=== PATIENT | male | born 1940 | race Caucasian/White ===

== ENCOUNTER 2017-07-04 14:17 | Outpatient (CLI) ==
--- NOTE | 2017-07-04 15:10 | DI ---
EXAM: Chest, two views, 07/04/2017 HISTORY: Cough COMPARISON: 07/05/2015 FINDINGS / IMPRESSION: Cardiomediastinal contours appear stable. There is no focal pulmonary consolidation. No pleural effusion or pneumothorax. No acute cardiopulmonary process.
== END 2017-07-04 14:18 | disposition home or self-care (01) ==
LOC: RAD 14:17
PROVIDERS: ATTEND Family Medicine
DX: J44.9 Chronic obstructive pulmonary disease, unspecified (principal); Z77.090 Contact with and (suspected) exposure to asbestos

== ENCOUNTER 2017-11-13 15:39 | Outpatient (CLI) ==
--- NOTE | 2017-11-13 16:57 | DI ---
EXAM: Four views of the cervical spine. History: Neck pain. Findings: No acute fracture or subluxation of the cervical spine. No prevertebral soft tissue swell ing. Predental space is not widened. Atherosclerotic vascular calcifications. Moderate disc space narrowing at C6-7 with endplate sclerosis and osteophyte formation. Mild disc space narrowing seen e lsewhere. Straightening of the normal curvature of the cervical spine. Impression: 1. No acute osseous abnormality of the cervical spine. 2. Moderate degenerative disc disease at C6-7
== END 2017-11-13 15:40 | disposition home or self-care (01) ==
LOC: RAD 15:39
PROVIDERS: ATTEND Family Medicine
DX: M54.2 Cervicalgia (principal); M79.609 Pain in unspecified limb

== ENCOUNTER 2017-12-19 08:15 | Outpatient (RCR) ==
--- NOTE | 2017-12-10 11:50 | RS.OPPTEV2 ---
Date of Note: 12/10/17 Visit #: 1 Date of Evaluation: 12/10/17 Payer Source: MEDICARE Surgery Performed?: No Treatment Diagnosis: acute cervical pain History of Condition/Mechanism of Injury:: pt reports his pain in cervical spine and upper thoracic spine began around 11/03/17. He reports no injury noted. Prior Level of Function.....Patient was independent with: ADL's, Self Care, Ambulation/Mobility, Community Integration/Access Functional Limitations: Reaching, Pushing, Pulling, Lifting Current Subjective/complaints:: pt states he has constant pain in cervical spine no radicular symptoms noted. pt reports no movement seems to change pain. Treatment Side (optional): N/A *Precautions: n/a Medical History Medical History: Hypertension, COPD, Arthritis Medical History Comments:: "kidney problems", gout, rheumatoid arthritis Surgical History: Cholecystectomy, Tonsillectomy Surgical History Comments:: cardiac stent Smoking Status: Former smoker Diagnostic Testing/Imaging:: cervical spine x ray 11/13/17 "moderate degenerative disc disease C6-C7" Hx Home Medications: prednisone, losartan, allopurinol, carvedilol, bumetanide, atorvastatin, enalapril, calcium, folic acid, fish oil Patient's Goals: decrease pain Pain Assessment - Pain Description Pain Location: cervical spine especially lower cervical R worse than L Current Pain Intensity: 6 Worst Pain Intensity: 9 Functional Outcome Measure Neck Disability Index: 19 (62%) - G Codes & Severity Modifier G Codes & Modifier: changing and maintaining body position current CL. changing and maintaining body position goal CJ Source of G Code score: neck disability index Observation - Observation Posture: Forward Head, Rounded Shoulders, Increased Thoracic Kyphosis, Decreased Lumbar Lordosis Handedness: Right Gait - Gait Pattern General Gait Pattern Observation: No Deviations/Normal General Range of Motion: BUE/LE WFL's Muscle Strength: BUE 4+/5. BLE 5/5 - ROM Cervical Spine Range of Motion Limitations: Soft Tissue Tightness, Muscle Weakness, Pain Comments: pt with Cervical flex, ext, rotation WFL's. cervical side bending somewhat limited R worse than L due to muscle tightness. - Strength Cervical Extension: 4 Good Cervical Flexion: 4 Good Cervical Lateral Flexion: 3+ Fair+ Cervical Rotation: 4- Good- - Special Tests Foraminal Distraction: Negative Foraminal Compression: Negative Left, Negative Right Thoracic Outlet Test: Negative Left, Negative Right (ROM does not increase pain , pain remains constant throughout exam, no c/o radicular pain.) Palpation Palpation Findings: Tenderness, Trigger Point Comments:: pt with trigger point noted in R upper trap. Tenderness in B cervical paraspinal muscles, upper traps and scalenes. Sensation - Sensation Right Upper Extremity: Impaired Left Upper Extremity: Impaired Right Lower Extremity: Impaired Left Lower Extremity: Impaired Comments: pt reports numbness and tingling B hands and feet. Balance - Sitting Balance Static Sitting Balance: Normal Dynamic Sitting Balance: Normal - Standing Balance Static Standing Balance: Normal Dynamic Standing Balance: Normal - Treatment Modality: Electrical Stim Unattended Parameters/Method Applied: IFC x 20 mins at 16ma Treatment Area: cervical spine Patient Position: Supine - Heat/Cryotherapy Treatment: Hot Pack Comments:: cervical spine Interventions - Exercise/Activities/Manual Therapy Exercises/Activities: pt performed corner stretches, scapular retraction, cervical retraction, upper trap and scalene stretch Manual Therapy: n/a HOME EXERCISE PROGRAM: pt given written HEP including: corner stretch, scapular retraction, cervical retraction, upper trap and scalene stretch - Objective Findings Observations,measurements,etc.: Discussion with patient regarding using towel roll to improve curve in cervical spine. - Charges Timed Code Treatment Minutes: 40 Total Treatment Time: 62 Procedures billed for this date of service:: eval med, estim unattended, hot pack EVALUATION COMPLEXITY LEVEL EVALUATION COMPLEXITY LEVEL: HISTORY: Medium (RA, gout, HTN, COPD), EXAM OF BODY SYSTEMS: Medium (pain, muscle tightness, posture), CLINICAL PRESENTATION: Medium (evolving), CLINICAL DECISION MAKING: Medium Assessment Assessment: pt presents with upper trap and scalene tightness as well as tightness noted in paraspinal muscles. pt with pain in cervical spine R worse than L. pt with forward flexed posture and tight pectoral muscles as well. Patient Education: Home Exercise Program, Activity Modification, Education of Plan of Care Rehab Potential: Good Short Term Goals Goal #1: pt rate pain in cervical spine < 5/10 with activity Goal to be met by: 12/31/17 Goal #2: pt with decreased muscle tightness in B upper trap/scalenes Goal to be met by: 12/31/17 Goal #3: pt report less dizziness/headaches Goal to be met by: 12/31/17 Manager Managed Care Goals Goal #1: pt rate pain cervical spine <4/10 Goal to be met by: 01/21/18 Goal #2: pt with decreased muscle tightness WFL's upper trap/scalene, and paraspinal Goal to be met by: 01/21/18 Goal #3: pt independent with HEP Goal to be met by: 01/21/18 Goal #4: pt with improved posture and no reports of dizziness Goal to be met by: 01/21/18 Plan - Treatment to be Provided Procedures: Therapeutic Exercises, Therapeutic Activity, Neuromuscular Rehab, Manual Therapy, Massage, Patient Education Modalities: Electrical Stimulation, Ultrasound/Phonophoresis, Class IV Laser, Cryotherapy, Hot Packs, Mechanical Traction - Treatment Plan Frequency: 2-3x a week Duration: 6 weeks ORDER # VISITS AND/OR THROUGH DATE: 01/21/18 - Treatment Code (1) Cervical pain Code(s): M54.2 - CERVICALGIA (2) Muscle tightness Code(s): M62.89 - OTHER SPECIFIED DISORDERS OF MUSCLE
--- NOTE | 2017-12-12 11:42 | RS.OPPTDN ---
Subjective Date of Note: 12/12/17 Visit #: 2 Date of Evaluation: 12/10/17 Payer Source: MEDICARE Treatment Diagnosis: acute cervical pain Current Subjective/complaints:: Patient reports increased muscle soreness following first treatment. Reports he is working on HEP as instructed. *Precautions: n/a Pain Assessment - Pain Description Pain Location: Cervical spine and upper traps Pain Description: Tightness, Aching Current Pain Intensity: 4-6/10 - Treatment Modality: Electrical Stim Unattended Parameters/Method Applied: [id number] HVGC to the bilateral cervical paraspinals with HP prior to MT and EX. Patient Position: Sitting - Heat/Cryotherapy Treatment: Hot Pack ([id number] with Estim ) Interventions - Exercise/Activities/Manual Therapy Exercises/Activities: Assisted stretching of cervical lateral flexion, lev scap , upper traps, and anterior chest stretch. Scapular retraction and shoulder shrugs. Isometric cervical retraction with manual resistance. Reviewed current HEP and patient given copy of new exercise. Total minutes of Exercise: 9mins Manual Therapy: Deep tissue massage and trigger point release to the bilateral cervical paraspinals and traps. Myofascial release along the traps. Total minutes of Manual Therapy: 20mins HOME EXERCISE PROGRAM: pt given written HEP including: corner stretch, scapular retraction, cervical retraction, upper trap and scalene stretch, Isometric cervical retraction - Charges Timed Code Treatment Minutes: 29mins Total Treatment Time: 52mins Procedures billed for this date of service:: HP, Estim unattended, MT, EX Assessment: Patient motivated to work on HEP and progress. Patient Education: Education of diagnosis, Body/Joint mechanics, Home Exercise Program Comments: Patient education of spinal mechanics and posture. Patient demonstrates compliance with HEP?: Yes Short Term Goals Goal #1: pt rate pain in cervical spine < 5/10 with activity Goal to be met by: 12/31/17 Goal #2: pt with decreased muscle tightness in B upper trap/scalenes Goal to be met by: 12/31/17 Goal #3: pt report less dizziness/headaches Goal to be met by: 12/31/17 Skilled Nursing Goals Goal #1: pt rate pain cervical spine <4/10 Goal to be met by: 01/21/18 Goal #2: pt with decreased muscle tightness WFL's upper trap/scalene, and paraspinal Goal to be met by: 01/21/18 Goal #3: pt independent with HEP Goal to be met by: 01/21/18 Progress towards goal: Progressing Goal #4: pt with improved posture and no reports of dizziness Goal to be met by: 01/21/18 Plan PLAN OF CARE EXPIRES ON:: 01/21/18 ORDER # VISITS AND/OR THROUGH DATE: 01/21/18 PLAN: Continue modalities, manual therapy, and exercise to reduce pain and increase functional activity level.
--- NOTE | 2017-12-17 09:57 | RS.OPPTDN ---
Subjective Date of Note: 12/17/17 Visit #: 3 Date of Evaluation: 12/10/17 Payer Source: MEDICARE Treatment Diagnosis: acute cervical pain Current Subjective/complaints:: Patient reports last treatment seems to have reduced his pain. States he has not noticed a flair-up the last few days with weather changes. *Precautions: n/a Pain Assessment - Pain Description Pain Location: cervical to upper thoracic spine Current Pain Intensity: mild to mod - Treatment Modality: Electrical Stim Unattended Parameters/Method Applied: [id number] HVGC to 155p.v. with 2 small pads along each cervical to upper thoracic paraspinals with HP. Patient Position: Supine - Heat/Cryotherapy Treatment: Hot Pack (with Estim prior to MT. Patient in supine. ) Interventions - Exercise/Activities/Manual Therapy Exercises/Activities: Assisted stretching of cervical lateral flexion. Isometric cervical retraction with manual resistance. Discussed current HEP, no new additions. Total minutes of Exercise: 5mins Manual Therapy: Deep tissue massage and trigger point release to the bilateral cervical paraspinals and traps. Myofascial release along the traps. Total minutes of Manual Therapy: 23mins HOME EXERCISE PROGRAM: pt given written HEP including: corner stretch, scapular retraction, cervical retraction, upper trap and scalene stretch, Isometric cervical retraction - Charges Timed Code Treatment Minutes: 28mins Total Treatment Time: 48mins Procedures billed for this date of service:: HP, Estim unattended, MTx2 Assessment: Patient responding to treatment with report of reduction in pain. Patient Education: Body/Joint mechanics, Home Exercise Program Patient demonstrates compliance with HEP?: Yes Short Term Goals Goal #1: pt rate pain in cervical spine < 5/10 with activity Goal to be met by: 12/31/17 Goal #2: pt with decreased muscle tightness in B upper trap/scalenes Goal to be met by: 12/31/17 Goal #3: pt report less dizziness/headaches Goal to be met by: 12/31/17 Progress towards Goal:: Progressing Hospice Aide Goals Goal #1: pt rate pain cervical spine <4/10 Goal to be met by: 01/21/18 Goal #2: pt with decreased muscle tightness WFL's upper trap/scalene, and paraspinal Goal to be met by: 01/21/18 Goal #3: pt independent with HEP Goal to be met by: 01/21/18 Progress towards goal: Progressing Goal #4: pt with improved posture and no reports of dizziness Goal to be met by: 01/21/18 Plan PLAN OF CARE EXPIRES ON:: 01/21/18 ORDER # VISITS AND/OR THROUGH DATE: 01/21/18 PLAN: Continue modalities, manual therapy, and postural correction exercise to reduce pain and increase functional activity level.
--- NOTE | 2017-12-20 09:06 | RS.OPPTDN ---
Subjective Date of Note: 12/19/17 Visit #: 4 Date of Evaluation: 12/10/17 Payer Source: MEDICARE Treatment Diagnosis: acute cervical pain Current Subjective/complaints:: Patient reports some muscle soreness improving, but feels the "fogginess" he feels seems related to sinus problems. *Precautions: n/a Pain Assessment - Pain Description Pain Location: base of cervical spine through mid thoracic spine Pain Description: Tightness, Aching Current Pain Intensity: mod - Treatment Modality: Electrical Stim Unattended Parameters/Method Applied: [id number] HVGC to 255p.v. with 4 small pads along the lower cervical paraspinals to the mid thoracic paraspinals with HP. Patient Position: Supine - Heat/Cryotherapy Treatment: Hot Pack ([id number] with Estim ) Interventions - Exercise/Activities/Manual Therapy Exercises/Activities: Assisted stretching of cervical lateral flexion. Isometric cervical retraction with manual resistance. Isometric shoulder extension. Mid scapular stretch with UE across midline. Patient given copy of new exercise. Total minutes of Exercise: 12mins Manual Therapy: Deep tissue massage and trigger point release to the bilateral cervical paraspinals and traps. Myofascial release along the traps. Total minutes of Manual Therapy: 19mins HOME EXERCISE PROGRAM: pt given written HEP including: corner stretch, scapular retraction, cervical retraction, upper trap and scalene stretch, Isometric cervical retraction - Charges Timed Code Treatment Minutes: 41mins Total Treatment Time: 41mins Procedures billed for this date of service:: [place] EX Assessment: Patient reporting some improvement in neck pain and cervical mobility. He is working on basic HEP. Patient Education: Education of diagnosis, Body/Joint mechanics, Home Exercise Program Patient demonstrates compliance with HEP?: Yes Short Term Goals Goal #1: pt rate pain in cervical spine < 5/10 with activity Goal to be met by: 12/31/17 Progress towards Goal:: Progressing Goal #2: pt with decreased muscle tightness in B upper trap/scalenes Goal to be met by: 12/31/17 Progress towards Goal:: Progressing Goal #3: pt report less dizziness/headaches Goal to be met by: 12/31/17 Progress towards Goal:: Not Met Comments:: Bothering him today, feels this is related to sinus problems. Telemarketing Supervisor Goals Goal #1: pt rate pain cervical spine <4/10 Goal to be met by: 01/21/18 Goal #2: pt with decreased muscle tightness WFL's upper trap/scalene, and paraspinal Goal to be met by: 01/21/18 Goal #3: pt independent with HEP Goal to be met by: 01/21/18 Progress towards goal: Progressing Goal #4: pt with improved posture and no reports of dizziness Goal to be met by: 01/21/18 Plan PLAN OF CARE EXPIRES ON:: 01/21/18 ORDER # VISITS AND/OR THROUGH DATE: 01/21/18 PLAN: Progress with postural strengthening and correction exercises.
== END 2017-12-19 23:59 ==
PROVIDERS: ATTEND Family Medicine
DX: M54.2 Cervicalgia (principal); M54.9 Dorsalgia, unspecified; G89.29 Other chronic pain; M19.90 Unspecified osteoarthritis, unspecified site; M62.89 Other specified disorders of muscle

== ENCOUNTER 2017-12-31 08:00 | Outpatient (RCR) ==
--- NOTE | 2017-12-24 10:54 | RS.OPPTDN ---
Subjective Date of Note: 12/24/17 Visit #: 5 Date of Evaluation: 12/10/17 Payer Source: MEDICARE Treatment Diagnosis: acute cervical pain Current Subjective/complaints:: Patient reports tension in his neck is much better, but radicular symptom of numbness in the right UE seems aggravated. Patient reports feeling better following cervical traction today. *Precautions: n/a Pain Assessment - Pain Description Pain Location: cervical spine and right UE Current Pain Intensity: mild at neck Other Comments regarding Pain:: Radicular symptoms of numbness in the right UE, seems aggravated today. - Heat/Cryotherapy Treatment: Hot Pack ([id number] to the cervical spine and upper traps prior to TX. Patient in sitting. ) - Traction Treatment Method: Mechanical, Intermittent, Cervical Patient Position: Supine Amount of Force Applied: 18-23# Hold Time: 35sec Rest Time: 5sec Duration of treatment: 15mins Interventions - Exercise/Activities/Manual Therapy Exercises/Activities: Assisted stretching of cervical lateral flexion. Isometric cervical retraction with manual resistance. Discussed current HEP, no new additions. Total minutes of Exercise: 3mins Manual Therapy: Trigger point release to the bilateral cervical paraspinals and traps. Myofascial stretching of bilateral traps. Total minutes of Manual Therapy: 4mins HOME EXERCISE PROGRAM: pt given written HEP including: corner stretch, scapular retraction, cervical retraction, upper trap and scalene stretch, Isometric cervical retraction - Charges Timed Code Treatment Minutes: 7mins Total Treatment Time: 42mins Procedures billed for this date of service:: HP, [place] mechanical Assessment: Patient reports good response to cervical traction and states he would like to try again. Patient Education: Body/Joint mechanics, Home Exercise Program Patient demonstrates compliance with HEP?: Yes Short Term Goals Goal #1: pt rate pain in cervical spine < 5/10 with activity Goal to be met by: 12/31/17 Goal #2: pt with decreased muscle tightness in B upper trap/scalenes Goal to be met by: 12/31/17 Goal #3: pt report less dizziness/headaches Goal to be met by: 12/31/17 Progress towards Goal:: Progressing Balance Truer Goals Goal #1: pt rate pain cervical spine <4/10 Goal to be met by: 01/21/18 Goal #2: pt with decreased muscle tightness WFL's upper trap/scalene, and paraspinal Goal to be met by: 01/21/18 Goal #3: pt independent with HEP Goal to be met by: 01/21/18 Progress towards goal: Progressing Goal #4: pt with improved posture and no reports of dizziness Goal to be met by: 01/21/18 Plan PLAN OF CARE EXPIRES ON:: 01/21/18 ORDER # VISITS AND/OR THROUGH DATE: 01/21/18 PLAN: Progress cervical traction in attempt to reduce neck pain and right UE radicular symptoms.
--- NOTE | 2017-12-27 16:13 | RS.OPPTDN ---
Subjective Date of Note: 12/27/17 Visit #: 6 Date of Evaluation: 12/10/17 Payer Source: MEDICARE Treatment Diagnosis: acute cervical pain Current Subjective/complaints:: Patient reports starting traction last session has reduced his pain by 50%. Also a reduction in dizziness and headaches. *Precautions: n/a Pain Assessment - Pain Description Pain Location: Cervical spine and right UE Current Pain Intensity: mild Other Comments regarding Pain:: Reports cervical traction has reduced neck pain and radicular symptoms in the right UE. - Heat/Cryotherapy Treatment: Hot Pack ([id number] to the cervical spine and bilateral UT. Patient in sitting. ) - Traction Treatment Method: Mechanical, Intermittent, Cervical Patient Position: Supine Amount of Force Applied: 22-25# Hold Time: 35sec Rest Time: 5sec Duration of treatment: 20mins Interventions - Exercise/Activities/Manual Therapy Exercises/Activities: Assisted stretching of cervical lateral flexion. Isometric cervical retraction with manual resistance. Green theraband for scapular retraction and bilateral shoulder ext for postural strengthening. Patient given copies of new exercises. Total minutes of Exercise: x8mins Manual Therapy: Trigger point release to the bilateral trap trigger points. Total minutes of Manual Therapy: x3mins HOME EXERCISE PROGRAM: pt given written HEP including: corner stretch, scapular retraction, cervical retraction, upper trap and scalene stretch, Isometric cervical retraction - Charges Timed Code Treatment Minutes: 11mins Total Treatment Time: 51mins Procedures billed for this date of service:: HP, TX mechanical, EX Assessment: Patient responded well to initiation of cervical traction with reports of reduction of pain and radicular symptoms. Patient Education: Education of diagnosis, Body/Joint mechanics, Home Exercise Program, Activity Modification Patient demonstrates compliance with HEP?: Yes Short Term Goals Goal #1: pt rate pain in cervical spine < 5/10 with activity Goal to be met by: 12/31/17 Progress towards Goal:: Partially Met Goal #2: pt with decreased muscle tightness in B upper trap/scalenes Goal to be met by: 12/31/17 Progress towards Goal:: Progressing Goal #3: pt report less dizziness/headaches Goal to be met by: 12/31/17 Progress towards Goal:: Partially Met Usp Goals Goal #1: pt rate pain cervical spine <4/10 Goal to be met by: 01/21/18 Progress towards goal: Progressing Goal #2: pt with decreased muscle tightness WFL's upper trap/scalene, and paraspinal Goal to be met by: 01/21/18 Goal #3: pt independent with HEP Goal to be met by: 01/21/18 Progress towards goal: Progressing Goal #4: pt with improved posture and no reports of dizziness Goal to be met by: 01/21/18 Progress towards goal: Partially Met Plan PLAN OF CARE EXPIRES ON:: 01/21/18 ORDER # VISITS AND/OR THROUGH DATE: 01/21/18 PLAN: Continue and progress cervical traction to reduce neck pain and radicular symptoms.
--- NOTE | 2017-12-31 11:45 | RS.OPPTDN ---
Subjective Date of Note: 12/31/17 Visit #: 7 Date of Evaluation: 12/10/17 Payer Source: MEDICARE Treatment Diagnosis: acute cervical pain Current Subjective/complaints:: Patient reports he is much better since having cervical traction. States his right UE radicular symptoms have localized in the right upper traps. Reports mild muscle tightness at based of cervical spine. States dizziness has resolved and headaches or only occasional and mild. States he feels he can continue HEP and is ready to stop treatment at this time. *Precautions: n/a Pain Assessment - Pain Description Pain Location: base of c-spine Pain Description: Dull Pain Description: muscle soreness Current Pain Intensity: mild - Heat/Cryotherapy Treatment: Hot Pack ([id number] to the base of the cervical spine and upper traps prior to TX. Patient in sitting. ) - Traction Treatment Method: Mechanical, Intermittent, Cervical Patient Position: Supine Amount of Force Applied: 25# Hold Time: 35sec Rest Time: 5sec Duration of treatment: 20mins Interventions - Exercise/Activities/Manual Therapy Exercises/Activities: Discussed HEP including stretching and postural correction /strengthening. Discussed home management with home traction unit, with patient also considering an inversion table/chair. Total minutes of Exercise: 5mins Manual Therapy: NA HOME EXERCISE PROGRAM: pt given written HEP including: corner stretch, scapular retraction, cervical retraction, upper trap and scalene stretch, Isometric cervical retraction - Objective Findings Observations,measurements,etc.: Neck Disability Index improved to 11/50 or 22% - Charges Timed Code Treatment Minutes: 5mins Total Treatment Time: 45mins Procedures billed for this date of service:: HP, [place] mechanical Assessment: Patient has progressed well and benefitted from treatment. He has met 5 of 7 goals, is independent with HEP, and feels he is ready for discharge. Patient Education: Body/Joint mechanics, Home Exercise Program, Home Safety, Activity Modification Comments: Reveiwed and finalized all patient education and HEP. Patient demonstrates compliance with HEP?: Yes Short Term Goals Goal #1: pt rate pain in cervical spine < 5/10 with activity Goal to be met by: 12/31/17 Progress towards Goal:: Met Goal #2: pt with decreased muscle tightness in B upper trap/scalenes Goal to be met by: 12/31/17 Progress towards Goal:: Met Goal #3: pt report less dizziness/headaches Goal to be met by: 12/31/17 Progress towards Goal:: Met Comments:: Reports no dizziness, mild occasional headache Interventionist Goals Goal #1: pt rate pain cervical spine <4/10 Goal to be met by: 01/21/18 Progress towards goal: Progressing Goal #2: pt with decreased muscle tightness WFL's upper trap/scalene, and paraspinal Goal to be met by: 01/21/18 Progress towards goal: Progressing Goal #3: pt independent with HEP Goal to be met by: 01/21/18 Progress towards goal: Met Goal #4: pt with improved posture and no reports of dizziness Goal to be met by: 01/21/18 Progress towards goal: Met Plan PLAN OF CARE EXPIRES ON:: 01/21/18 ORDER # VISITS AND/OR THROUGH DATE: 01/21/18 PLAN: Discharge with HEP.
--- NOTE | 2017-12-31 15:45 | RS.OPPTDC ---
Date of Discharge: 12/31/17 Date of Evaluation: 12/10/17 Number of Visits: 7 Treatment Diagnosis: acute cervical pain Current Level of Function: pt is independent with HEP. pt muscle tone and tightness has decreased. Cervical ROM WFL's. pt has met 5/7 goals Current Complaints/Gains: pt reports he is better. Dizziness has resolved, with only occasional and mild headaches. RUE radiating symptoms have localized into upper traps. pt states he will continue HEP and is ready for DC. Pain Assessment - Pain Description Pain Location: Cervical pain Pain Description: Aching Functional Outcome Measure Neck Disability Index: 11 (22%) - G Codes & Severity Modifier G Codes & Modifier: changing and maintaining body position goal CJ. changing and maintaining body position DC Source of G Code score: neck disability index Observation - Observation Posture: Forward Head, Rounded Shoulders Gait - Gait Pattern General Gait Pattern Observation: No Deviations/Normal General Range of Motion: WFL's Muscle Strength: WFL's Interventions - Exercise/Activities/Manual Therapy Exercises/Activities: n/a Manual Therapy: NA HOME EXERCISE PROGRAM: pt given written HEP including: corner stretch, scapular retraction, cervical retraction, upper trap and scalene stretch, Isometric cervical retraction - Charges Timed Code Treatment Minutes: n/a Total Treatment Time: n/a Procedures billed for this date of service:: n/a Assessment Assessment: pt has met 5/7 goals. pt has made significant progress with decreased muscle tone/tightness, as well as cervical ROM. Patient Education: Home Exercise Program, Activity Modification, Education of Plan of Care Rehab Potential: Good Short Term Goals Goal #1: pt rate pain in cervical spine < 5/10 with activity Goal to be met by: 12/31/17 Progress towards Goal:: Met Goal #2: pt with decreased muscle tightness in B upper trap/scalenes Goal to be met by: 12/31/17 Progress towards Goal:: Met Goal #3: pt report less dizziness/headaches Goal to be met by: 12/31/17 Progress towards Goal:: Met [employer] Goals Goal #1: pt rate pain cervical spine <4/10 Goal to be met by: 01/21/18 Progress towards goal: Progressing Goal #2: pt with decreased muscle tightness WFL's upper trap/scalene, and paraspinal Goal to be met by: 01/21/18 Progress towards goal: Progressing Goal #3: pt independent with HEP Goal to be met by: 01/21/18 Progress towards goal: Met Goal #4: pt with improved posture and no reports of dizziness Goal to be met by: 01/21/18 Progress towards goal: Met Plan Comments: pt feels he is ready to be dc because he is independent with HEP as well as has met 5/7 goals.
== END 2018-01-18 23:59 ==
PROVIDERS: ATTEND Family Medicine
DX: M54.2 Cervicalgia (principal); M54.9 Dorsalgia, unspecified; G89.29 Other chronic pain; M19.90 Unspecified osteoarthritis, unspecified site; M62.89 Other specified disorders of muscle

== ENCOUNTER 2018-01-02 11:13 | Outpatient (CLI) ==
--- NOTE | 2018-01-02 12:10 | DI ---
EXAM: Two views of the chest. History: Chronic respiratory failure. Comparison: Chest radiograph 07/04/2017 Findings: Heart is mildly enlarged. There may be bronchial wall thickening. No definite consolidat ed pneumonia. No appreciable pleural fluid and no pneumothorax. Atherosclerotic vascular calcificat ions. No acute osseous abnormalities. Impression: 1. Mild cardiomegaly without overt pulmonary edema. 2. There may be bronchial wall thickening. There is no consolidated pneumonia.
== END 2018-01-02 11:14 | disposition home or self-care (01) ==
LOC: RAD 11:13
PROVIDERS: ATTEND Nurse Practitioner Family
DX: J96.11 Chronic respiratory failure with hypoxia (principal)

== ENCOUNTER 2018-08-01 08:15 | Outpatient (CLI) ==
--- NOTE | 2018-08-01 09:42 | US ---
EXAM: Renal ultrasound. History: Follow-up renal cysts. Comparison: Renal ultrasound 10/20/2010 Technique: Multiple sonographic images through the kidneys were obtained. Color duplex Doppler was used to interrogate vascular flow. Findings: The right kidney measures 11.2 cm in long length demonstrating normal cortical echogenicity without e vidence for hydronephrosis or shadowing calculus. Multiple anechoic cysts are again seen within the right kidney with the largest measuring 1.9 cm not significantly changed compared to the prior study. The left kidney measures 9.6 cm in long length demonstrating normal cortical echogenicity without palak dence for hydronephrosis or shadowing calculus. Multiple anechoic cysts are again seen within the le ft kidney with the largest measuring 2.9 cm not significantly changed compared to the prior study. The visualized bladder demonstrates no abnormality. Impression: 1. No hydronephrosis. 2. No significant interval change in the simple bilateral renal cysts
== END 2018-08-01 08:16 | disposition home or self-care (01) ==
LOC: RAD 08:15
PROVIDERS: ATTEND Internal Medicine Nephrology
DX: N18.4 Chronic kidney disease, stage 4 (severe) (principal); N28.9 Disorder of kidney and ureter, unspecified

== ENCOUNTER 2019-03-24 14:36 | Outpatient (CLI) ==
--- NOTE | 2019-03-24 15:14 | DI ---
EXAM: Two views of the chest. History: Chest pain, asbestos exposure. Comparison: Chest radiograph 06/26/2018 Findings: Heart is enlarged. No focal consolidation. Possible nodule within the left lower lobe. No appreciable pleural fluid and no pneumothorax. No acute osseous abnormalities. Impression: 1. Possible nodule within the left lower lobe. Recommend further evaluation with chest CT. 2. Cardiomegaly
== END 2019-03-24 14:37 | disposition home or self-care (01) ==
LOC: RAD 14:36
PROVIDERS: ATTEND Nurse Practitioner Family
DX: J96.11 Chronic respiratory failure with hypoxia (principal); J98.4 Other disorders of lung; J84.9 Interstitial pulmonary disease, unspecified; Z87.891 Personal history of nicotine dependence

== ENCOUNTER 2019-03-30 09:36 | Outpatient (CLI) ==
--- NOTE | 2019-03-30 14:48 | CT ---
EXAM: CT chest without contrast HISTORY: Lung nodule COMPARISON: Radiograph dated 03/24/2019 TECHNIQUE: Multiple axial images of the chest were obtained intravenous contrast. Images were refor matted in the sagittal and coronal planes. FINDINGS: Hyperdense left thyroid nodule measuring approximately 2 cm with slightly heterogeneous appearance. Normal heart size. No pericardial effusion. Coronary atherosclerotic calcifications. Normal diamete r aorta. Scattered atherosclerotic calcifications. No enlarged mediastinal, hilar or axillary lymph nodes. Mild emphysematous changes. Mild linear subsegmental atelectasis along the fissure in the lingular b ase. No suspicious nodule in the left lung. 4 mm right lower lobe pulmonary nodule (axial 31). No acute findings within the visualized upper abdomen. Prior cholecystectomy. Partially visualized right superior pole kidney water density cyst. No acute osseous abnormality. No aggressive osseous lesion. IMPRESSION: 1. No acute findings or suspicious pulmonary nodules. Incidental 4 mm right lower lobe nodule and a few sub 2 mm nodules. Recommend follow-up CT and six S12 months for reevaluation. 2. Lingular linear atelectasis versus less likely consolidation. 3. Emphysema. 4. Heterogeneous thyroid with hypodense left lobe nodule. Recommend dedicated ultrasound for furthe r evaluation.
== END 2019-03-30 09:37 | disposition home or self-care (01) ==
LOC: RAD 09:36
PROVIDERS: ATTEND Nurse Practitioner Family
DX: R91.1 Solitary pulmonary nodule (principal); Z87.891 Personal history of nicotine dependence